=== PATIENT | male | born 1985 | race Two or more races ===

== ENCOUNTER 2020-04-09 00:25 | Emergency (ER) | payer OTHER ==
[~2020-04-09] VITALS: Ht 180.3 cm; Wt 92.1 kg
== END 2020-04-09 02:10 | disposition home or self-care (01) ==
LOC: ER 00:25
DX: H60.8X2 Other otitis externa, left ear (principal); H92.02 Otalgia, left ear

== ENCOUNTER 2023-07-28 08:43 | Emergency (ER) | payer OTHER ==
[~2023-07-28] VITALS: Ht 182.9 cm; Wt 112.9 kg
[2023-07-28] MEDS ORDERED: VALACYCLOVIR500 MG PO (08:52)
[2023-07-28 11:45] LABS: HEMATOCRIT 43.8 % (39.0-48.0); HEMOGLOBIN 14.9 g/dL (13-16.00); MEAN CELL VOLUME 84.7 fL (80.0-100.00); MEAN CORPUSCULAR HEMOGLOBIN 28.7 pg (27.00-32.0); MEAN CORPUSCULAR HGB CONC 33.9 g/dl (32.0-36.0); PLATELET COUNT 265 K/uL (150-450); RED BLOOD COUNT 5.17 M/uL (4.00-6.00); RED CELL DISTRIBUTION WIDTH 13.4 % (11.5-14.5)
== END 2023-07-28 12:56 | disposition home or self-care (01) ==
LOC: ER 08:43
DX: J32.9 Chronic sinusitis, unspecified (principal); I10 Essential (primary) hypertension; Z20.822 Contact with and (suspected) exposure to COVID-19

== ENCOUNTER 2024-07-13 12:52 | Emergency (ER) | payer OTHER ==
[~2024-07-13] VITALS: Ht 182.9 cm; Wt 112.0 kg
[~2024-07-13 12:52] MED LIST: VALACYCLOVIR500 MG PO
[2024-07-13] MEDS ORDERED: KETOROLAC TROMETHAMINE 30 MG VIAL IM STA (14:45)
[2024-07-13] MEDS ORDERED: KETOROLAC TROMETHAMINE 30 MG VIAL ONE (15:04)
== END 2024-07-13 15:47 | disposition home or self-care (01) ==
LOC: ER 12:53
DX: M94.0 Chondrocostal junction syndrome [Tietze] (principal); R51.9 Headache, unspecified